=== PATIENT | female | born 1955 | race African-American/Black ===

== ENCOUNTER 2020-07-05 22:17 | Inpatient (IN) | payer OTHER ==
[~2020-07-05] VITALS: Ht 162.6 cm; Wt 102.0 kg
[2020-07-05 22:18] VITALS: BP 125/107
[2020-07-05 23:40] LABS: ABSOLUTE NEUTROPHILS 4.6 thou/uL (1.4-8.2); BASOPHILS 0.5 % (0.0-2.0); EOSINOPHILS 0.2 % (0.0-3.0); HEMATOCRIT 33.1 % (37.0-47.0); HEMOGLOBIN 11.2 gm/dL (12.0-15.0); LYMPHOCYTES 11.9 % (24.0-44.0); MCH 30.3 pg (26.0-34.0); MCHC 33.9 g/dL (28.0-37.0); MCV 89.4 fL (80.0-100.0); MONOCYTES 8.2 % (1.0-8.0); PLATELET COUNT 126 thou/uL (150-400); POLYS 79.2 % (36.0-66.0); RBC 3.71 mil/uL (4.20-5.00); RDW 14.6 % (10.5-14.5); WBC 5.8 thou/uL (4.0-11.0)
[2020-07-05 23:50] LABS: INR 0.93; PROTIME 10.2 Seconds (9.3-11.4)
[2020-07-05 23:51] LABS: ANION GAP 13 mmol/L (7-16); BUN 35 mg/dL (7-18); CALCIUM 8.2 mg/dL (8.5-10.1); CHLORIDE 105 mmol/L (98-107); CO2 25 mmol/L (21-32); CREATININE 1.6 mg/dL (0.6-1.0); GLUCOSE 186 mg/dL (74-106); POTASSIUM 4.5 mmol/L (3.5-5.1); SODIUM 143 mmol/L (136-145)
[2020-07-06 00:01] LABS: LIPASE 164 U/L (73-393); SGOT 49 U/L (15-37); SGPT 25 U/L (30-65); TOTAL BILIRUBIN 0.7 mg/dL (0.2-1.0); TOTAL PROTEIN 7.2 g/dL (6.4-8.2); TROPONIN-I <0.06 ng/mL (<0.06)
[2020-07-06] MEDS ORDERED: LISINOPRIL10 MG PO (02:26)
[2020-07-06] MEDS ORDERED: LIPITOR40 MG PO (02:26)
[2020-07-06] MEDS ORDERED: HUMALOG KW100 UNIT/1 SUBQ (03:24)
[2020-07-06] MEDS ORDERED: LANTUS SOL100 UNIT/1 SUBQ (03:25)
[2020-07-06] MEDS ORDERED: TRULICITY1.5 MG/0.5 SUBQ (03:26)
[2020-07-06 06:37] LABS: CHOLESTEROL 165 mg/dL (<200); HDL CHOLESTEROL 43 mg/dL (>40); LDL CHOLESTEROL 80 mg/dL (<100); TC:HDL 3.8 Ratio (Not establshd); TRIGLYCERIDE 210 mg/dL (<150); VLDL 42 mg/dL (<40)
--- NOTE | 2020-07-06 07:55 | NUR ---
CONTACTED DIETARY. PT MEAL TRAY WILL BE DELIVERED SHORTLY.
[2020-07-06 08:27] LABS: ANION GAP 12 mmol/L (7-16); BUN 31 mg/dL (7-18); CHLORIDE 107 mmol/L (98-107); CO2 25 mmol/L (21-32); CREATININE 1.5 mg/dL (0.6-1.0); GLUCOSE 263 mg/dL (74-106); POTASSIUM 4.5 mmol/L (3.5-5.1); SODIUM 144 mmol/L (136-145)
[2020-07-06 08:38] LABS: ALBUMIN 2.8 g/dL (3.4-5.0); SGOT 48 U/L (15-37); SGPT 24 U/L (14-59); TOTAL BILIRUBIN 0.5 mg/dL (0.2-1.0); TOTAL PROTEIN 6.9 g/dL (6.4-8.2); TROPONIN-I <0.06 ng/mL (<0.06)
--- NOTE | 2020-07-06 11:05 | EKG ---
[place] [address] [facility] [place] [address] ELECTROCARDIOGRAM REPORT Name: JOSIANE PALOMO Room #: 170-10 ADM IN M.R.#: [id number] Admission: 07/06/20 Attend Phys: Prasanth Max MD Discharge: Date of : 55 Report #: [id number] [facility] ED Test Date: 2020-07-05 Test Time: 22:57:03 Pat Name: JOSIANE PALOMO Department: Room: 170 Gender: F Embedded Systems Engineer: MANDA : 1955 Requested By: Corbin Wilde Order Number: [id number] MD: Marco A Malik Measurements Intervals [place] Rate: 97 P: 70 VA: 119 QRS: 31 QRSD: 95 T: 43 QT: 364 QTc: 463 Interpretive Statements Sinus rhythm Borderline short VA interval Probable left atrial enlargement RSR' in V1 or V2, probably normal variant Baseline wander in lead(s) V3 No previous ECG available for comparison Electronically Signed On 07-06-2020 11:05:51 CDT by Marco A Malik [email or web address] <ELECTRONICALLY SIGNED> By: Marco A Malik MD 07/06/20 1105 56 56 Marco A Malik MD /ADRIEN
--- NOTE | 2020-07-06 15:07 | HC ---
[facility] [place] [address] CONSULTATION Name: JOSIANE PALOMO Room #: 170-10 ADM IN M.Jennifer.#: [id number] Admission: 07/06/20 Attend Phys: Prasanth Max MD Discharge: Date of : 55 Report #: [id number] THIS REPORT FOR: cc: [facility] - Clinic physician unknown [facility] - Clinic physician unknown Vasyl Elmore MD ~ DATE OF SERVICE: 07/06/2020 INFECTIOUS DISEASE CONSULTATION ATTENDING PHYSICIAN: Dr. Max. REASON FOR EVALUATION: Pneumonitis as well as diarrhea. HISTORY OF PRESENT ILLNESS: Chart reviewed, patient examined. This is a 64-year-old woman with known diabetes mellitus, who began feeling ill around 06/21/2020, was evaluated at that point with dyspnea, nausea, emesis, lower abdominal pain and apparently diagnosed with urinary tract infection. She was treated with fosfomycin, subsequent to that, had developed almost refractory diarrhea, perhaps related to the adverse drug effect. She has had progressive shortness of breath. Evaluation previously had been fairly unremarkable. It was felt to be hypoxic, was placed on supplemental oxygen 3.5 liters. Chest x-ray showed right lung infiltrate. Blood cultures collected on admission are negative thus far and elevated creatinine of 1.6. Lactic acid is 1.2. Procalcitonin is 0.13. CT abdomen and pelvis showed no abnormalities with the kidneys, thick walled appearance of the splenic flexure, there is question of otherwise lack of inflammatory changes. COVID testing is pending. She has ongoing abdominal pain, although it is not clear if she has had significant fevers. Does admit to chills. She has had anorexia and poor p.o. intake. She is not encephalopathic. ALLERGIES: None known. CURRENT MEDICATIONS: Include atorvastatin, aspirin, famotidine, zinc, ascorbic acid, enoxaparin, guaifenesin, insulin lispro, metronidazole, ipratropium and albuterol inhaler, dexamethasone, azithromycin and ceftriaxone. PAST MEDICAL HISTORY: Noted diabetes mellitus, hyperlipidemia, and renal insufficiency. SOCIAL HISTORY: Nonsmoker, no ethanol, no illicit drug use. FAMILY HISTORY: Noncontributory. REVIEW OF SYSTEMS: Otherwise, as noted above in 10-point review. [address] [address] CONSULTATION Name: JOSIANE PALOMO Room #: 170-10 ADM IN Zohaib.#: [id number] Admission: 07/06/20 Attend Phys: Prasanth Max MD Discharge: Date of : 55 Report #: [id number] PHYSICAL EXAMINATION: GENERAL: She appears ill. She is lying in right lateral position. She is generally lucid, moderate distress, appears somewhat chronically ill and undernourished. VITAL SIGNS: Temperature 98.9, pulse 86, respirations 17, blood pressure 145/62. SKIN: Warm, dry, no rashes. HEENT: Normocephalic. Extraocular muscles are intact. Nasal cannula is in place. NECK: Supple. LUNGS: Few scattered coarse breath sounds. HEART: Regular. I do not appreciate a murmur. ABDOMEN: Somewhat tender to palpation. There are no overt peritoneal signs. GENITOURINARY AND RECTAL: Deferred. LABORATORY DATA: Electrolytes: Sodium is 144, potassium 4.5, chloride 107, bicarbonate 25, anion gap of 12, BUN and creatinine 31 and 1.5, and glucose of 263. AST 48, ALT of 24, albumin of 2.8, total protein 6.9, estimated GFR 42. CT abdomen and pelvis described above. Blood cultures are sterile thus far. Procalcitonin is 0.13. Lactic acid is 1.2. CBC: White count of 5.8, H and H 11.2 and 33.1, and platelets of 126. ASSESSMENT: 1. Pneumonitis, complicated by respiratory failure. 2. Refractory diarrhea in the setting of antibiotics. 3. Diabetes mellitus. PLAN: We will continue empiric antimicrobial therapy. At this point, awaiting results of the COVID testing seems likely this may well be positive. In the event of this, we will add additional therapy to cover that. She remains quite tenuous at this point. We will check a stool for C. diff as well, perhaps may explain in part her gastrointestinal related issues. She does remain quite tenuous. Continue to monitor expectantly, supportive care. Thank you. <ELECTRONICALLY SIGNED> By: Vasyl Elmore MD 07/06/20 1507 [id number] Vasyl Elmore MD /nt
[2020-07-06 18:06] LABS: BE(vivo) -2.3 mmol/L (-2 to +3); HCO3 21.9 mmol/L (22.0-26.0); PCO2 35.5 mmHg (35.0-45.0); PO2 72.6 mmHg (80.0-100.0); pH 7.408 (7.360-7.450); sO2 94.9 % (92.0-98.0)
[2020-07-06 18:25] VITALS: BP 123/68
[2020-07-06 19:15] VITALS: BP 132/65
[2020-07-06 20:30] VITALS: BP 141/80
[2020-07-07] VITALS (44 sets, daily range): BP systolic 72–163; BP diastolic 45–97
[2020-07-07 01:05] LABS: GLYCOHEMOGLOBIN (HGB A1C) 7.4 % (4.8-5.6)
[2020-07-07 04:27] LABS: URINE BILIRUBIN NEGATIVE (Negative); URINE BLOOD TRACE (Negative); URINE CLARITY CLEAR; URINE COLOR YELLOW; URINE GLUCOSE-RANDOM* 2+ (Negative); URINE KETONES NEGATIVE (Negative); URINE LEUKOCYTES NEGATIVE (Negative); URINE NITRITE NEGATIVE (Negative); URINE PROTEIN (DIPSTICK) 2+ (Negative); URINE SPECIFIC GRAVITY >= 1.030 (1.005-1.035); URINE UROBILINOGEN 0.2 E.U./dl (0.2-1.0)
[2020-07-07 04:39] LABS: AMORPHOUS URATES Few /LPF (None Seen); BACTERIA None Seen /HPF (None Seen); HYALINE CASTS 0-3 Few /LPF (None Seen); MUCUS 0-3 Light strn/LPF (None Seen); SQUAMOUS None Seen /LPF (0-3); TRANSITIONAL EPITHEL CELL 0-3 Few /LPF (None Seen); URINE RBC 0-2 Rare /HPF (0-2); URINE WBC None Seen /HPF (0-5)
[2020-07-07 04:40] LABS: CRYSTALS None Seen /LPF (None Seen)
[2020-07-07 07:09] LABS: ALBUMIN 2.5 g/dL (3.4-5.0); CALCIUM 7.9 mg/dL (8.5-10.1); CREATININE 1.4 mg/dL (0.6-1.0); DIRECT BILIRUBIN 0.1 mg/dL (<0.1-0.2); PHOSPHORUS 2.7 mg/dL (2.6-4.7); POTASSIUM 4.5 mmol/L (3.5-5.1); TOTAL BILIRUBIN 0.4 mg/dL (0.2-1.0); TOTAL PROTEIN 6.4 g/dL (6.4-8.2)
--- NOTE | 2020-07-07 07:52 | NUR ---
PT ADMITTED FROM ER TO 356 FOR COVID +. DEHYDRATION, PNEUMONIA, ON BIPAP. 08/11 RT 12 FIO2 80%. BS DIMINISHED AND SLIGHTLY COARSE AT BASES. LABORED ON CURRENT BIPAP SETTINGS. FIO2 INCREASED TO 85 %. SATS DOWN TO 88-89%. NOTIFIED DAY SHIFT RT. PT POSSIBLY TO TRANSFER TO ICU. DAY SHIFT WAITING FOR DR ALCALA TO SEE PT. PCXRAY DONE THIS AM. ENCOURAGED PT TO NOT BE TALKING ON THE PHONE AND TO RELAX. NOTIFIED MEAT SCRUBBER LAST NIGHT OF DESATURATION AND SOA, AND ANXIETY. MORPHINE GIVEN X1 FOR AIR HUNGER . PT STILL C/O SOA. NO C/O CHEST PAIN TONIGHT. NOTIFIED DAY SHIFT RT AND NS, AND CHARGE NS OF SATS AND CURRENT RESP STATUS.
[2020-07-07 08:25] LABS: HCO3 20.4 mmol/L (22.0-26.0); PCO2 35.7 mmHg (35.0-45.0); PO2 77.2 mmHg (80.0-100.0); pH 7.375 (7.360-7.450); sO2 95.2 % (92.0-98.0)
--- NOTE | 2020-07-07 11:00 | NUR ---
chart review. pt transferred down from 3w rt sob, on bipap 100% covid +. unable to visit with her rt isolation and conserve on ppe. will cont following as needed for dc needs.
--- NOTE | 2020-07-07 11:38 | NUR ---
ASSUMED PATIENT CARE AR 0700. A/O X4.ANXIOUS. INCREASED FOI2 TO 100% AT 0800. ERPORTED ABG TO DR THORPE AND DR JOSUE. PATIENT TRANSFERED TO [facility] AT 1135.
--- NOTE | 2020-07-07 12:09 | NUR ---
ASSUMED CARE OF PT AT 1130 FROM 3W RECEIVED A CALL FROM 3W FRAUD ANALYST STATING DR. THORPE TOLD HER THAT WHEN THE PATIENT ARRIVED WE WOULD BE INTUBATING HER. PT ARRIVED ON THE UNIT AND I PAGED DR. THORPE, HE STATED HE WANTED THE CENTRAL LINE PLACED FIRST AND THEN WE WILL INTUBATE. GEORGES (PT SISTER) CALLED AT 1210 FOR AN UPDATE AND WANTED TO KNOW WHY THE PT HAD BEEN MOVED TO ICU. SHE STATED THAT HER SON IS THE DPOA BUT HE LIVES IN [place], SO GEORGES IS THE LOCAL HVAC SERVICE TECHNICIAN. SHE ASKED ME TO CALL THE PT'S SON AND EXPLAIN WHAT IS GOING ON.
--- NOTE | 2020-07-07 14:47 | NUR ---
VAT PLACED A 5FRTL RT IJ FOR COVID+ PT FOR INTUBATION
[2020-07-07 16:04] LABS: BE(vivo) -6.2 mmol/L (-2 to +3); HCO3 18.4 mmol/L (22.0-26.0); PCO2 33.2 mmHg (35.0-45.0); PO2 159.4 mmHg (80.0-100.0); pH 7.361 (7.360-7.450)
--- NOTE | 2020-07-07 17:12 | NUR ---
ASSUMED CARE OF PT AT 1130. PT CAME DOWN ON BIPAP FROM 3W PATIENT WAS INTUBATED AT 1337 PT'S SATS DROPPED JUST AFTER 1400 TO THE 50'S, WE RECEIVED A CALL FROM RADIOLOGY THAT THE ET TUBE WAS IN THE RIGHT BRONCHUS AND NEEDED TO BE BACKED OUT 3 CM. RT WAS AT THE BEDSIDE AND DID THAT AND HER SATS WENT BACK TO THE 90'S. I HAVE SPOKEN TO PT'S SISTER GEORGES 3 TIMES TODAY, HER SISTER JOSE CAME UP TO THE ICU AND ASKED QUESTIONS ABOUT HER CONDITION. I TOLD HER THAT THEY HAD TO HAVE ONE SPOKES PERSON AND I COULD NOT BE ANSWERING THE SAME QUESTIONS ALL DAY LONG. SHE SAID SHE UNDERSTOOD. I JUST RECEIVED A CALL A 1715 FROM ANOTHER SISTER AND A MAN THAT STATED HE WAS HER AND THEY WERE BOTH WANTING INFORMATION. I INFORMED THEM THAT ONLY ONE PERSON COULD CALL A DAY FOR UPDATES, THEY SAID THEY UNDERSTOOD. THEY WOULD LIKE TO FACETIME THE PT LATER AND I TOLD THEM TO COORDINATE THAT WITH THE NIGHT NURSE
[2020-07-08] VITALS (100 sets, daily range): BP systolic 80–148; BP diastolic 43–76
[2020-07-08 04:51] LABS: ABSOLUTE NEUTROPHILS 4.2 thou/uL (1.4-8.2); BASOPHILS 0.2 % (0.0-2.0); HEMATOCRIT 26.7 % (37.0-47.0); LYMPHOCYTES 12.1 % (24.0-44.0); MCH 29.6 pg (26.0-34.0); MCHC 33.6 g/dL (28.0-37.0); MCV 88.1 fL (80.0-100.0); MONOCYTES 8.5 % (1.0-8.0); PLATELET COUNT 157 thou/uL (150-400); POLYS 79.2 % (36.0-66.0); RBC 3.03 mil/uL (4.20-5.00); RDW 14.8 % (10.5-14.5); WBC 5.3 thou/uL (4.0-11.0)
[2020-07-08 05:16] LABS: BE(vivo) -3.7 mmol/L (-2 to +3); HCO3 19.2 mmol/L (22.0-26.0); PCO2 27.7 mmHg (35.0-45.0); PO2 131.9 mmHg (80.0-100.0); pH 7.459 (7.360-7.450); sO2 98.8 % (92.0-98.0)
[2020-07-08 05:24] LABS: ALBUMIN 2.1 g/dL (3.4-5.0); ANION GAP 13 mmol/L (7-16); BUN 36 mg/dL (7-18); CALCIUM 7.3 mg/dL (8.5-10.1); CHLORIDE 110 mmol/L (98-107); CO2 19 mmol/L (21-32); CREATININE 1.3 mg/dL (0.6-1.0); DIRECT BILIRUBIN < 0.1 mg/dL (<0.1-0.2); GLUCOSE 372 mg/dL (74-106); PHOSPHORUS 3.1 mg/dL (2.5-4.9); POTASSIUM 4.4 mmol/L (3.5-5.1); SGOT 36 U/L (15-37); SGPT < 6 U/L (30-65); SODIUM 142 mmol/L (136-145); TOTAL BILIRUBIN 0.4 mg/dL (0.2-1.0); TOTAL PROTEIN 5.2 g/dL (6.4-8.2)
--- NOTE | 2020-07-08 11:34 | NUR ---
chart review, on vent, unable visit with ezra + erendira. cm left message for her sister marcus, requested a call back.
--- NOTE | 2020-07-08 19:58 | NUR ---
Layla, family called to inquire regarding pt status. updated including pt on vent, sedated to allow her lungs to rest while fighting off the covid. when sedation vacation performed pt "bucking vent so hard she intermittently is sitting up in bed", then requires continued sedation. pt requiring increasing amounts of fio2 on vent. continous bed rotation for her lungs. informed her since pt is a diabetic, she is at greater risk for covid and potential complications however we are doing every thing possible to promote an optimal outcome. Layla expressed her gratitude. all questions answered to satisfaction.
[2020-07-09] VITALS (84 sets, daily range): BP systolic 78–154; BP diastolic 36–79
[2020-07-09 05:35] LABS: HEMOGLOBIN 9.4 gm/dL (12.0-15.0); MCH 30.1 pg (26.0-34.0); MCHC 33.7 g/dL (28.0-37.0); MCV 89.1 fL (80.0-100.0); RBC 3.14 mil/uL (4.20-5.00); WBC 6.7 thou/uL (4.0-11.0)
[2020-07-09 05:56] LABS: ALBUMIN 2.3 g/dL (3.4-5.0); ANION GAP 12 mmol/L (7-16); BUN 32 mg/dL (7-18); CALCIUM 7.3 mg/dL (8.5-10.1); CHLORIDE 111 mmol/L (98-107); CO2 20 mmol/L (21-32); CREATININE 1.2 mg/dL (0.6-1.0); DIRECT BILIRUBIN < 0.1 mg/dL (<0.1-0.2); GLUCOSE 346 mg/dL (74-106); SGOT 37 U/L (15-37); SGPT 14 U/L (30-65); SODIUM 143 mmol/L (136-145); TOTAL BILIRUBIN 0.4 mg/dL (0.2-1.0); TOTAL PROTEIN 5.6 g/dL (6.4-8.2)
--- NOTE | 2020-07-09 12:28 | NUR ---
ASSUMED CARE OF PT AT 0700 DR. RODRIGUEZ AT BEDSIDE AT 1036, HE IS GOING TO ORDER AND INSULIN DRIP DUE TO CONSISTENTLY HIGH SUGARS DR. THORPE AT OUTSIDE OF ROOM AT 1115, NO NEW ORDERS GIVEN
--- NOTE | 2020-07-09 14:51 | NUR ---
1ST CXR TOO DEEP, RIJ WITHDREW FEW CM'S. 2ND CXR CONFIRMED CL PLACEMENT. RELEASED FOR IMMEDIATE USE PER PROTOCOL.
[2020-07-10] VITALS (71 sets, daily range): BP systolic 85–125; BP diastolic 44–68
[2020-07-10 05:12] LABS: HEMATOCRIT 25.6 % (37.0-47.0); HEMOGLOBIN 8.7 gm/dL (12.0-15.0); MCH 30.3 pg (26.0-34.0); MCHC 33.9 g/dL (28.0-37.0); MCV 89.6 fL (80.0-100.0); RBC 2.86 mil/uL (4.20-5.00); WBC 8.4 thou/uL (4.0-11.0)
[2020-07-10 05:55] LABS: ALBUMIN 2.1 g/dL (3.4-5.0); ANION GAP 12 mmol/L (7-16); BUN 31 mg/dL (7-18); CALCIUM 7.2 mg/dL (8.5-10.1); CHLORIDE 116 mmol/L (98-107); CO2 20 mmol/L (21-32); CREATININE 1.3 mg/dL (0.6-1.0); DIRECT BILIRUBIN < 0.1 mg/dL (<0.1-0.2); GLUCOSE 302 mg/dL (74-106); PHOSPHORUS 1.4 mg/dL (2.5-4.9); POTASSIUM 3.5 mmol/L (3.5-5.1); SGOT 44 U/L (15-37); SGPT 21 U/L (30-65); SODIUM 148 mmol/L (136-145); TOTAL BILIRUBIN 0.3 mg/dL (0.2-1.0); TOTAL PROTEIN 4.9 g/dL (6.4-8.2)
--- NOTE | 2020-07-10 07:13 | NUR ---
ASSUMED CARE AT 1900. 1999-SPOKE TO PT'S SISTER , GAVE UPDATE ON CONDITION, SHE ASKED SAME QUESTIONS MULTIPLE TIMES. SUCTIONED PT, AND SHE WOKE UP THROUGH HER SEDATION, ABLE TO SHAKE HEAD YES/NO AND SQUEEZE HAND TO COMMAND. RT CHANGED VENT SETTING TO PRESSURE CONTROL APPROX 2230. AFTER A SLIGHT INCR TO VERSED GTT AND THE VENT CHANGE, PT SATTING BETTER OVERNIGHT. Q1 HOUR ACCUCHECKS, TITRATING INSULIN GTT THROUGHOUT NIGHT, BLOOD SUGARS CONSISTENTLY IN 300'S. PT HAD TWO BOWEL MOVEMENTS OVERNIGHT, THE 2ND ONE THIS AM VERY RUNNY; PT MAY QUALIFY FOR A FMS TODAY. NO OTHER CONCERNS, SHIFT REPORT GIVEN 0700.
--- NOTE | 2020-07-10 12:02 | NUR ---
ASSUMED CARE OF PT AT 0700 KARU AT BEDSIDE AT 1030, ORDERING ASH THORPE OUTSIDE DOOR, NO NEW ORDERS GIVEN PT'S SISTER CALLED AT 1203 AND UPDATED PER POC
[2020-07-11] VITALS (71 sets, daily range): BP systolic 78–148; BP diastolic 45–80
[2020-07-11 04:12] LABS: BE(vivo) -4.4 mmol/L (-2 to +3); HCO3 21.2 mmol/L (22.0-26.0); PCO2 41.5 mmHg (35.0-45.0); sO2 90.6 % (92.0-98.0)
[2020-07-11 04:13] LABS: pH 7.327 (7.360-7.450)
[2020-07-11 06:54] LABS: HEMATOCRIT 25.5 % (37.0-47.0); HEMOGLOBIN 8.6 gm/dL (12.0-15.0); MCH 30.5 pg (26.0-34.0); MCHC 33.8 g/dL (28.0-37.0); MCV 90.2 fL (80.0-100.0); RBC 2.83 mil/uL (4.20-5.00); RDW 15.7 % (10.5-14.5); WBC 10.5 thou/uL (4.0-11.0)
[2020-07-11 07:01] LABS: CALCIUM 7.5 mg/dL (8.5-10.1); CREATININE 1.4 mg/dL (0.6-1.0); POTASSIUM 3.7 mmol/L (3.5-5.1)
--- NOTE | 2020-07-11 07:37 | NUR ---
ASSUMED CARE AT 1900. PT HAD A LARGE LIQUID STOOL, OBTAINED ORDER AND PLACED FMS. THIS AM, PT NOTED TO HAVE O2 SATS 89-90% WHILE LYING TOWARD LEFT SIDE. AFTER PULLING UP IN BED AND TURNING TO RIGHT, SATS IMPROVED TO 98%. CONTINUES TO HAVE LOUD CRACKLES ON LEFT SIDE. SPOKE TO PT'S SISTER JOSE THIS AM AT 0545, GAVE UPDATE ABOUT INSULIN GTT AND O2 NEEDS; SHE ASKED IF THE FAMILY COULD FACETIME SOMETIME, POSSIBLY THIS EVENING OR TUESDAY AFTERNOON. MADE SURE TO PASS THAT REQUEST ON TO DAY RN. NO OTHER CONCERNS, SHIFT REPORT GIVEN 0700.
--- NOTE | 2020-07-11 12:20 | NUR ---
chart review. + covid. remains on vent, nutritional support. discussed during am rounds: prone?, restarted insulin gtt, levo gtt. bedside nurse have been in communication with family. no anticipated dc over weekend. will cont following as needed for dc needs.
[2020-07-12] VITALS (58 sets, daily range): BP systolic 84–160; BP diastolic 53–93
[2020-07-12 04:35] LABS: HEMATOCRIT 27.4 % (37.0-47.0); HEMOGLOBIN 9.1 gm/dL (12.0-15.0); MCH 29.7 pg (26.0-34.0); MCHC 33.1 g/dL (28.0-37.0); MCV 89.8 fL (80.0-100.0); RBC 3.05 mil/uL (4.20-5.00); RDW 15.6 % (10.5-14.5); WBC 11.2 thou/uL (4.0-11.0)
[2020-07-12 04:39] LABS: CALCIUM 7.7 mg/dL (8.5-10.1); CREATININE 1.1 mg/dL (0.6-1.0); POTASSIUM 4.3 mmol/L (3.5-5.1)
[2020-07-12 05:22] LABS: BE(vivo) -3.2 mmol/L (-2 to +3); HCO3 22.6 mmol/L (22.0-26.0); PCO2 43.7 mmHg (35.0-45.0); pH 7.332 (7.360-7.450); sO2 85.7 % (92.0-98.0)
[2020-07-12 05:23] LABS: PO2 53.8 mmHg (80.0-100.0)
--- NOTE | 2020-07-12 07:04 | NUR ---
ASSUMED CARE AT 1900. SPOKE W/PT'S SISTER GEORGES ABOUT 2200, GAVE UPDATE ABOUT PRONING. STOPPED LEVO GTT AT 2120, BP STABLE OVERNIGHT, SLIGHTLY SOFT THIS AM. PT SUPINATED ABOUT 0300. TOLERATED BEING PRONED AND DID WELL ONCE TURNED BACK. RESUMED CONTINUOUS TUBE FEED, LOW RESIDUALS OVERNIGHT. INSULING GTT AT 2 UNITS/HR OVERNIGHT, BS IN 80-90. NO OTHER CONCERNS, SHIFT REPORT GIVEN O700.
--- NOTE | 2020-07-12 12:16 | NUR ---
ASSUMED CARE AT 0700. PATIENT'S SISTER, GEORGES CALLED FROM [phone] AND SHE WAS UPDATED AND EDUCATED ON THAT PATIENT'S CONDITION AND PLAN OF CARE.
[2020-07-12 12:59] LABS: BE(vivo) -0.4 mmol/L (-2 to +3); HCO3 24.4 mmol/L (22.0-26.0); PCO2 40.5 mmHg (35.0-45.0); PO2 78.5 mmHg (80.0-100.0); pH 7.397 (7.360-7.450); sO2 95.6 % (92.0-98.0)
[2020-07-13] VITALS (21 sets, daily range): BP systolic 98–151; BP diastolic 55–83
[2020-07-13 04:36] LABS: HEMATOCRIT 27.6 % (37.0-47.0); MCH 29.4 pg (26.0-34.0); MCHC 32.7 g/dL (28.0-37.0); MCV 89.7 fL (80.0-100.0); RBC 3.07 mil/uL (4.20-5.00); RDW 15.7 % (10.5-14.5); WBC 9.1 thou/uL (4.0-11.0)
[2020-07-13 04:43] LABS: BE(vivo) 1.9 mmol/L (-2 to +3); HCO3 27.2 mmol/L (22.0-26.0); PCO2 46.1 mmHg (35.0-45.0); PO2 59.3 mmHg (80.0-100.0); pH 7.389 (7.360-7.450); sO2 90.3 % (92.0-98.0)
[2020-07-13 05:11] LABS: CALCIUM 8.4 mg/dL (8.5-10.1); CREATININE 0.9 mg/dL (0.6-1.0); POTASSIUM 3.9 mmol/L (3.5-5.1)
--- NOTE | 2020-07-13 06:37 | NUR ---
PT TURNED BACK FROM PRONE POSITION AT 030. TOLERATING WELL. PROPOFOL RESUMED AT 2114. PT'S SISTER, GEORGES CALLED WITH STATUS UPDATE. VENT SETTINGS UNCHANGED. WILL CONTINUE TO MONITOR.
--- NOTE | 2020-07-13 10:32 | NUR ---
ASSUMED CARE AT 0700. SPOKE WITH PATIENT'S , POORNIMA OVER THE PHONE FROM [phone] AND SHE WAS UPDATED AND EDUCATED ON THE PATIENT'S CONDITION AND PLAN OF CARE.
--- NOTE | 2020-07-13 12:17 | NUR ---
ASSUMED CARE AT 0700. PATIENT'S SISTER, GEORGES, CALLED FROM [phone] AND SHE WAS UPDATED AND EDUCATED ON THE PATIENT'S CONDITION AND PLAN OF CARE.
[2020-07-14] VITALS (25 sets, daily range): BP systolic 90–169; BP diastolic 52–86
--- NOTE | 2020-07-14 03:48 | NUR ---
ASSUMED CARE OF PATIENT AT 1900. FIO2 TITRATED DOWN PATIENT TOLERATED. PRONE UNTIL 0100, UNPRONING WENT WELL, NO S/S OF DISTRESS, PATIENT DID PUSH FMS OUT OF RECTUM WHEN COUGHING, LEFT FMS OUT STOOL IS STARTING TO THICKEN UP. SPOKE WITH SISTER AT 2200. TALKED ABOUT INTUBATION, VENTILATION, CRITERIA FOR EXTUBATION OR POSSIBILITY OF TRACH. SISTER WOULD LIKE DR THORPE TO CALL PATIENT'S SON AND EXPLAIN IF THIS MIGHT BECOME A POSSIBILITY.
[2020-07-14 05:43] LABS: CALCIUM 8.7 mg/dL (8.5-10.1); CREATININE 0.8 mg/dL (0.6-1.0); POTASSIUM 3.7 mmol/L (3.5-5.1)
[2020-07-14 05:46] LABS: HEMATOCRIT 26.3 % (37.0-47.0); HEMOGLOBIN 8.7 gm/dL (12.0-15.0); MCH 29.8 pg (26.0-34.0); MCHC 33.2 g/dL (28.0-37.0); MCV 89.9 fL (80.0-100.0); RBC 2.92 mil/uL (4.20-5.00); RDW 15.5 % (10.5-14.5); WBC 6.7 thou/uL (4.0-11.0)
[2020-07-14 11:13] LABS: ALBUMIN 2.9 g/dL (3.4-5.0); DIRECT BILIRUBIN 0.1 mg/dL (<0.1-0.2); TOTAL BILIRUBIN 0.4 mg/dL (0.2-1.0); TOTAL PROTEIN 5.7 g/dL (6.4-8.2)
--- NOTE | 2020-07-14 15:17 | NUR ---
chart review. + covid. remains on vent, nutritional support. discussed during los and am rounds. bedside nurse reported she awake. will cont following as needed for dc needs. bedside staff providing updates family.
--- NOTE | 2020-07-14 19:27 | NUR ---
assumed care 0700.. pt openening eyes and nodding to questions in am when sedation lightened. fmaily update on pt staus 1200. proned at 1330 w/improvmement of 02 sat following repositioning. afebrile. small bm in am. marginal progression in plan of care if any.
[2020-07-15] VITALS (25 sets, daily range): BP systolic 85–129; BP diastolic 46–73
[2020-07-15 05:10] LABS: HEMATOCRIT 23.2 % (37.0-47.0); HEMOGLOBIN 7.8 gm/dL (12.0-15.0); MCH 30.8 pg (26.0-34.0); MCHC 33.9 g/dL (28.0-37.0); MCV 90.9 fL (80.0-100.0); RBC 2.55 mil/uL (4.20-5.00); RDW 15.6 % (10.5-14.5); WBC 4.9 thou/uL (4.0-11.0)
[2020-07-15 05:19] LABS: HCO3 28.2 mmol/L (22.0-26.0); PCO2 40.4 mmHg (35.0-45.0); PO2 65.5 mmHg (80.0-100.0); pH 7.461 (7.360-7.450); sO2 93.9 % (92.0-98.0)
[2020-07-15 05:32] LABS: CALCIUM 8.7 mg/dL (8.5-10.1); CREATININE 0.9 mg/dL (0.6-1.0)
[2020-07-15 05:40] LABS: ALBUMIN 2.8 g/dL (3.4-5.0); DIRECT BILIRUBIN 0.1 mg/dL (<0.1-0.2); TOTAL BILIRUBIN 0.6 mg/dL (0.2-1.0); TOTAL PROTEIN 5.4 g/dL (6.4-8.2)
--- NOTE | 2020-07-15 19:35 | NUR ---
PT CONTINUED TO OPEN EYS AND NOD TO QUESTIONS WHEN SPOKEN TO. ABLE TO WEAN PEEP TO 8 AND FI02 TO 50%. DESAT TO 88% WHEN ATTEMPTING TO WEAN PEEP TO 6. NO PRONE TODAY DUE TO WEANING TOLERANCE PER DR. THORPE. TOLERATING TUBE FEEDINGS. INCREASED WATER BOLUS TO Q4. PROGRESSING IN PLAN OF CARE.
[2020-07-16] VITALS (27 sets, daily range): BP systolic 83–154; BP diastolic 40–77
[2020-07-16 05:51] LABS: DIRECT BILIRUBIN 0.1 mg/dL (<0.1-0.2); TOTAL BILIRUBIN 0.3 mg/dL (0.2-1.0); TOTAL PROTEIN 5.7 g/dL (6.4-8.2)
[2020-07-16 06:17] LABS: CALCIUM 8.8 mg/dL (8.5-10.1); CREATININE 1.1 mg/dL (0.6-1.0); POTASSIUM 3.9 mmol/L (3.5-5.1)
--- NOTE | 2020-07-16 11:30 | NUR ---
ASSUMMED CARE OF THIS PATIENT FROM THE NIGHT NURSE ENRIKE AT 0700 TODAY. PATIENT REMAINS INTUBATED AND SEDATED ON THE VENT. SPOKE WITH PATIENT'S SISTER AT 1125 AND UPDATED HER TO THE PATIENT'S STATUS. WILL CONTINUE TO MONITOR.
--- NOTE | 2020-07-16 19:07 | NUR ---
PATIENT IS NOT PROGESSING TOWARDS OUTCOME GOALS O2 SAT IS IN THE LOWER 90'S, IMPROVED SEDATION WAS INCREASED. TOLERATING TUBE FEEDINGS. WILL CONTINUE TO MONITOR. PLEASE REFER TO ASSESSMENTS.
[2020-07-17] VITALS (23 sets, daily range): BP systolic 90–138; BP diastolic 47–76
[2020-07-17 05:26] LABS: HEMOGLOBIN 8.3 gm/dL (12.0-15.0); MCH 30.3 pg (26.0-34.0); MCHC 33.1 g/dL (28.0-37.0); MCV 91.4 fL (80.0-100.0); RBC 2.73 mil/uL (4.20-5.00); WBC 7.7 thou/uL (4.0-11.0)
[2020-07-17 05:54] LABS: CALCIUM 8.9 mg/dL (8.5-10.1); POTASSIUM 3.8 mmol/L (3.5-5.1)
--- NOTE | 2020-07-17 11:14 | NUR ---
ASSUMED CARE OF PT AT 0700 KARU AT BEDSIDE AT 1031 HE ASKED THAT I WORK ON DECREASING SEDATION SO WE CAN DETERMINE WHAT HER NEURO STATUS IS
[2020-07-18] VITALS (20 sets, daily range): BP systolic 84–171; BP diastolic 43–93
[2020-07-18 05:02] LABS: HEMATOCRIT 24.9 % (37.0-47.0); HEMOGLOBIN 8.2 gm/dL (12.0-15.0); MCH 30.2 pg (26.0-34.0); MCHC 33.1 g/dL (28.0-37.0); MCV 91.1 fL (80.0-100.0); RBC 2.73 mil/uL (4.20-5.00); RDW 15.7 % (10.5-14.5)
[2020-07-18 05:14] LABS: CALCIUM 9.4 mg/dL (8.5-10.1); CREATININE 1.2 mg/dL (0.6-1.0); POTASSIUM 4.1 mmol/L (3.5-5.1)
--- NOTE | 2020-07-18 15:31 | NUR ---
PT INTUBATED AND SEDATED. VENT SETTINGS TITRATED UP BY PULMONLOGY/RT. SEDATION VACATION PERFORMED FROM [phone], PT WAS ABLE TO WAKE UP BUT DID NOT FSC, COUGH/GAG/PAIN WXD INTACT. PT AFEBRILE, POLYUREA, FMS IN PLACE WITH SMALL OUTPUT, TOLERATING TUBE FEEDINGS AT GOAL WITH RESIDUALS WNL. PT AND MULTIPLE FAMILY MEMBERS HAVE BEEN UPDATED AND EDUCATED ON PT CONDITION AND POC. PT NOT PROGRESSING TOWARDS POC.
--- NOTE | 2020-07-18 16:18 | NUR ---
discussed during am rounds and los. she cont to required vent, nutritional support. family updated via bedside nurse. no anticipated dc over the weekend. will cont following as needed for dc needs.
[2020-07-19] VITALS (30 sets, daily range): BP systolic 89–186; BP diastolic 47–98
[2020-07-19 05:16] LABS: HEMATOCRIT 25.4 % (37.0-47.0); HEMOGLOBIN 8.4 gm/dL (12.0-15.0); MCH 30.7 pg (26.0-34.0); MCHC 33.1 g/dL (28.0-37.0); RBC 2.73 mil/uL (4.20-5.00); WBC 10.5 thou/uL (4.0-11.0)
[2020-07-19 05:23] LABS: CALCIUM 9.2 mg/dL (8.5-10.1); CREATININE 1.1 mg/dL (0.6-1.0)
--- NOTE | 2020-07-19 06:19 | NUR ---
ASSUMED CARE OF PATIENT AT 1900. BP LABILE, ORDER FOR VASO FROM DR MONTALVO RECIEVED. DID NOT START BP IMPROVED. O2 SATS DROPPED, FIO2 INCREASED TO 100%. SON CALLED AND WAS ABLE TO FACETIME. WOULD LIKE TO DO IT AGAIN. NOT PROGRESSING TOWARDS POC GOALS EVIDENCED BY INCREASED FIO2 NEEDS AND INABILITY TO TITRATE SEDATION.
--- NOTE | 2020-07-19 09:11 | NUR ---
AT APPX 0830, PT DEVELOPED COPIOUS PINK FROTHY SPUTUM, SUCTIONED FROM ETT. SPO2 74% DESPITE FIO2 100%. UPON AUSCULTATION, BILATERAL BREATH SOUNDS NOTED. DR. MONTALVO AT BEDSIDE. ORDERED STAT CXR TO EVALUATE FOR POSSIBLE PNEUMO- THORAX. DR. MONTALVO ALSO ORDERED AN ADDITIONAL LASIX 60MG IV TO BE GIVEN AFTER HE EVALUATED THE CXR WHILE ON THE UNIT. MONITORING THE PT CLOSELY. SPOKE W/ PT'S SISTER, UPDATE GIVEN W/ EMPHASIS ON CRITICAL CONDITION AND CURRENT EVENTS OF THE MORNING. REASSURANCES AND EMOTIONAL SUPPORT PROVIDED.
--- NOTE | 2020-07-19 10:06 | NUR ---
AT APPX 0945, DR MONTALVO CONTACTED REGARDING PT'S CONTINUED DETERIORATION IN CONDITION DESPITE INTERVENTIONS. RT HERE TO EVALUATE, SUCTION ETT W/ LAVAGE AND ADJUST VENTILATOR SETTINGS. DR. MONTALVO REACHED OUT TO PT'S SON TO DISCUSS PT'S CONDITION. WILL CONTINUE TO MONITOR THIS PT CLOSELY.
--- NOTE | 2020-07-19 10:58 | NUR ---
RT CALLED TO BEDSIDE DUE TO VENTILATOR ALARM AND SPO2 PERSISTENTLY REMAININING AROUND 74% DESPITE INTERVENTIONS. RT PLACED PT BACK ON VC/AC SETTINGS W/ PT SPO2 INCREASING TO 88%. WILL CONTINUE TO MONITOR THIS PT CLOSELY.
--- NOTE | 2020-07-19 18:38 | NUR ---
PT REQUIRING HIGHER FIO2 AND VENTILATOR SETTING ADJUSTMENTS TODAY. ADDITIONAL DOSE OF LASIX WAS GIVEN WITH GOOD RESULTS. PT REQUIRED HIGHER SEDATION FOR VENTILATOR TOLERANCE DUE TO INCREASED WORK OF BREATHING AND ASYNCHRONY W/ VENTILATOR. PT REQUIRING ADDITION OF LEVOPHED FOR B/P SUPPORT. URINE OUTPUT GOOD. PT TOLERATING TUBE FEEDINGS ADEQUATELY. OVERALL, PT NOT PROGRESSING TOWARD GOALS.
[2020-07-20] VITALS (26 sets, daily range): BP systolic 102–146; BP diastolic 54–72
[2020-07-20 05:40] LABS: ABSOLUTE NEUTROPHILS 6.2 thou/uL (1.4-8.2); BASOPHILS 0.7 % (0.0-2.0); EOSINOPHILS 0.6 % (0.0-3.0); HEMATOCRIT 21.5 % (37.0-47.0); HEMOGLOBIN 7.1 gm/dL (12.0-15.0); LYMPHOCYTES 12.8 % (24.0-44.0); MCH 30.8 pg (26.0-34.0); MCHC 33.2 g/dL (28.0-37.0); MCV 92.9 fL (80.0-100.0); MONOCYTES 5.3 % (1.0-8.0); PLATELET COUNT 130 thou/uL (150-400); POLYS 80.6 % (36.0-66.0); RBC 2.32 mil/uL (4.20-5.00); RDW 16.1 % (10.5-14.5); WBC 7.8 thou/uL (4.0-11.0)
[2020-07-20 05:54] LABS: ALBUMIN 3.4 g/dL (3.4-5.0); CALCIUM 8.7 mg/dL (8.5-10.1); CREATININE 1.3 mg/dL (0.6-1.0); MAGNESIUM 2.5 mg/dL (1.8-2.4); PHOSPHORUS 4.3 mg/dL (2.6-4.7); POTASSIUM 4.1 mmol/L (3.5-5.1); TOTAL BILIRUBIN 0.5 mg/dL (0.2-1.0); TOTAL PROTEIN 6.5 g/dL (6.4-8.2)
--- NOTE | 2020-07-20 08:05 | NUR ---
PT NOT PROGRESSING TOWARDS GOALS, UNABLE TO DECRESES SEDATION R/T ASYNCHRONOS BREATHING WITH MECHANICAL VENT., HIGH OXYGEN DEMANDS, UNABLE TO DECRESE VENT SETTING, RT ATTMEPTED TO LOWER fIO2 TO 90% AND THE PRESERVATIVE FILLER MACHINE OPERATOR DESATS MID TO LOW 80'S WITHIN 5MIN, HAD TO INCRESE BACK TO 100%. PT IS UNABLE TO TOLERATED TURING. THIS RN SPOKE WITH THE PATIENT'S SISTER VIA PHONE 07/19/20 AT 2030 AND GAVE AN UPDATE.
--- NOTE | 2020-07-20 08:18 | NUR ---
SPOKE TO SISTER GEORGES AT 0818 AND UPDATED HER PER POC. INFORMED HER THAT IF ANYTHING HAPPENS FOR THE WORSE THAT I WILL CALL HER.
--- NOTE | 2020-07-20 12:42 | NUR ---
ASSUMED CARE OF PT AT 0700, SPOKE TO PT'S SISTER AT 1130 TO GET CONSENT FOR BLOOD. SHE CALLED AGAIN AT 1235 AND WANTED TO KNOW HOW THE BLOOD TRANSFUSION WAS GOING. I SPOKE TO HER SON AT 1240 AND UPDATED HIM PER POC. HE WOULD LIKE TO FACETIME AT 1930
[2020-07-20 16:12] LABS: HEMOGLOBIN 8.1 gm/dL (12.0-15.0)
--- NOTE | 2020-07-20 22:47 | NUR ---
AT 2215 THIS RN CALLED DOMINGO'S SISTER GEORGES AND GAVE AND UPDATE, SHE WILL SAHE WITH THE FAMILY.
[2020-07-21] VITALS (39 sets, daily range): BP systolic 96–145; BP diastolic 49–77
--- NOTE | 2020-07-21 03:06 | NUR ---
CALLED RT TO BEDSIDE, R/T O2 SAT 85%, AMANDA WITH RT SUCTIONED, PINK FROTHY SPUTUM. THIS RN IS TITRATING SEDATION UP TO PREVENT PT FORM OVER BREATHING THE VENT. WILL CONT TO MONIOR. AMANDA DISS CALL DR SELVIN DARLING VENT CHANGE AROUND 0000.
[2020-07-21 05:20] LABS: BE(vivo) -1.9 mmol/L (-2 to +3); HCO3 25.5 mmol/L (22.0-26.0); PCO2 58.3 mmHg (35.0-45.0)
[2020-07-21 05:21] LABS: PO2 51.2 mmHg (80.0-100.0); pH 7.258 (7.360-7.450)
[2020-07-21 06:02] LABS: ABSOLUTE NEUTROPHILS 8.7 thou/uL (1.4-8.2); BASOPHILS 0.7 % (0.0-2.0); EOSINOPHILS 0.7 % (0.0-3.0); HEMATOCRIT 24.1 % (37.0-47.0); HEMOGLOBIN 8.2 gm/dL (12.0-15.0); LYMPHOCYTES 8.9 % (24.0-44.0); MCH 31.3 pg (26.0-34.0); MCHC 34.1 g/dL (28.0-37.0); MCV 91.6 fL (80.0-100.0); MONOCYTES 3.9 % (1.0-8.0); PLATELET COUNT 125 thou/uL (150-400); POLYS 85.8 % (36.0-66.0); RBC 2.63 mil/uL (4.20-5.00); RDW 15.2 % (10.5-14.5); WBC 10.1 thou/uL (4.0-11.0)
[2020-07-21 06:14] LABS: CALCIUM 9.2 mg/dL (8.5-10.1); CREATININE 1.4 mg/dL (0.6-1.0); MAGNESIUM 2.7 mg/dL (1.8-2.4); PHOSPHORUS 4.7 mg/dL (2.5-4.9); POTASSIUM 4.4 mmol/L (3.5-5.1)
--- NOTE | 2020-07-21 06:33 | NUR ---
PATEINT IS NOT PROGRESSING TOWARDS GOALS: INCREASED PC TO 40, fIO2 100% PEEP 16, IS OVER BREATHING THE VENT AND ACIDOTIC. SEADTION IS MAXED ON FENANYL, VERSED AND PROPOFOL. DR MONTALVO IS AWARE. aDDTIONAL DOSE OF LASIX WAS ORDERD AND ADMINISTERD.
--- NOTE | 2020-07-21 12:33 | NUR ---
ASSUMED CARE AT 0700. SPOKE TO PATIENT'S SISTER, GEORGES, FROM [phone] AND SHE WAS UPDATED AND EDUCATED ON THE PATIENT'S CONDITION AND PLAN OF CARE.
--- NOTE | 2020-07-21 16:32 | NUR ---
chart review. discussed during am rounds. remain on vent, nutritional support. try cpap trail. bedside nurse cont provide updates to pt family. will cont following as needed for dc needs.
[2020-07-22] VITALS (44 sets, daily range): BP systolic 75–118; BP diastolic 34–63
[2020-07-22 05:54] LABS: HEMOGLOBIN 7.8 gm/dL (12.0-15.0); MCHC 32.7 g/dL (28.0-37.0); MCV 94.6 fL (80.0-100.0); RBC 2.53 mil/uL (4.20-5.00); RDW 15.9 % (10.5-14.5); WBC 8.2 thou/uL (4.0-11.0)
[2020-07-22 06:02] LABS: ALBUMIN 3.2 g/dL (3.4-5.0); CALCIUM 9.2 mg/dL (8.5-10.1); PHOSPHORUS 7.7 mg/dL (2.6-4.7)
[2020-07-22 06:03] LABS: POTASSIUM 5.4 mmol/L (3.5-5.1)
--- NOTE | 2020-07-22 13:17 | NUR ---
ASSUMED CARE AT 0700. PATIENT'S SISTER, GEORGES, CALLED FROM [phone] AND SHE WAS UPDATED AND EDUCATED ON THE PATIENT'S CONDITION AND PLAN OF CARE.
[2020-07-23] VITALS (60 sets, daily range): BP systolic 91–120; BP diastolic 41–77
[2020-07-23 08:47] LABS: ALBUMIN 3.2 g/dL (3.4-5.0); CALCIUM 9.4 mg/dL (8.5-10.1); CREATININE 2.5 mg/dL (0.6-1.0); PHOSPHORUS 8.3 mg/dL (2.6-4.7); POTASSIUM 5.6 mmol/L (3.5-5.1)
--- NOTE | 2020-07-23 12:41 | NUR ---
ASSUMED CARE OF PT AT 0700 SPOKE TO PT'S SISTER GEORGES AT 1242 AND UPDATED PER POC. SHE WOULD LIKE TO KNOW WHY A CHEST X RAY HASN'T BEEN DONE SINCE THE , AND SHE WOULD LIKE TO SET UP FACETIME AND WILL CALL ME BACK TO LET ME KNOW WHAT TIME. I TOLD HER BEFORE 6 PM OR AFTER 8 PM
[2020-07-24] VITALS (45 sets, daily range): BP systolic 116–170; BP diastolic 48–70
[2020-07-24 05:09] LABS: HEMOGLOBIN 7.8 gm/dL (12.0-15.0); MCH 30.2 pg (26.0-34.0); MCHC 32.4 g/dL (28.0-37.0); MCV 93.1 fL (80.0-100.0); PLATELET COUNT 116 thou/uL (150-400); RBC 2.58 mil/uL (4.20-5.00); RDW 15.3 % (10.5-14.5); WBC 13.4 thou/uL (4.0-11.0)
[2020-07-24 05:55] LABS: ALBUMIN 2.8 g/dL (3.4-5.0); CALCIUM 9.2 mg/dL (8.5-10.1); DIRECT BILIRUBIN 0.6 mg/dL (<0.1-0.2); PHOSPHORUS 10.3 mg/dL (2.5-4.9)
[2020-07-24 06:10] LABS: CREATININE 3.8 mg/dL (0.6-1.0); POTASSIUM 6.7 mmol/L (3.5-5.1)
--- NOTE | 2020-07-24 06:20 | NUR ---
RN TO BEDSIDE AT APPROX 0440 BECAUSE PATIENT WAS BRADYCARDIC SUSTAINING IN THE 40S. PT ALSO HYPOTENSIVE. LEVOPHED DRIP INCRASED WITH NO IMPROVEMENT. .5MG IV ATROPINE GIVEN. HR AND BP IMROVED. DR MONTALVO NOTIFIED. DOPAMINE DRIP ORDERED. RN TO BEDSIDE AT APPROX 545. RN NOTICED SIGNIFICANT BLEEDING FROM PATIENTS CENTRAL LINE. BLOOD SOAKED THE SHEETS AND PATIENT GOWN. PRESSURE APPLIED TO SITE FOR APPROX 20 MINUTES. BLEEDING STOPPED. DRESSING CHANGED. DR MONTALVO NOTIFIED. CONTINUE TO MONITOR.
--- NOTE | 2020-07-24 08:30 | NUR ---
discussed during am rounds. Nephrology spoke with family via phone call this am. will cont following as needed for dc needs.
--- NOTE | 2020-07-24 08:42 | NUR ---
ASSUMED CARE OF PT AT 0700 DR. DELANEY AT BEDSIDE AT 0830, ORDERED NEW LABS AND MEDICATIONS. HE ALSO SPOKE TO THE PT'S SISTER GEORGES AND HER SON. THE SON INDICATED HE WANTS EVERYTHING DONE.
[2020-07-24 09:25] LABS: ABSOLUTE NEUTROPHILS 11.4 thou/uL (1.4-8.2); NUCLEATED RBCS 1 /100WBC; PLATELET ESTIMATE NORMAL
[2020-07-24 12:59] LABS: ALBUMIN 2.8 g/dL (3.4-5.0); CREATININE 4.1 mg/dL (0.6-1.0); PHOSPHORUS 9.7 mg/dL (2.5-4.9)
[2020-07-24 13:01] LABS: POTASSIUM 6.1 mmol/L (3.5-5.1)
[2020-07-25] VITALS (66 sets, daily range): BP systolic 91–132; BP diastolic 43–62
[2020-07-25 04:33] LABS: BE(vivo) -11.4 mmol/L (-2 to +3); HCO3 18.3 mmol/L (22.0-26.0); PCO2 64.2 mmHg (35.0-45.0); PO2 134.5 mmHg (80.0-100.0); sO2 97.4 % (92.0-98.0)
[2020-07-25 04:34] LABS: pH 7.072 (7.360-7.450)
--- NOTE | 2020-07-25 04:52 | NUR ---
FAMILY FACETIME WITH PT FOR 2.5 HOURS VIA IPAD. HR SLOWS TO 60'S WHEN DOPAMINE IS PAUSED, 80'S AND STABLE OTHERWISE. TIDAL VOLUMES 250-350. SLIGHT COUGH, NO GAG, NO PURPOSEFUL MOVEMENT OR RESPONSE. OG REPLACED AFTER SEVERAL HOURS OF ATTEMPTING TO UNCLOG, PLACED WITHOUT INCIDENT, DARK RED/BROWN RETURN. ABLE TO SLIGHTLY WEAN LEVO.
[2020-07-25 05:40] LABS: ALBUMIN 2.6 g/dL (3.4-5.0); CALCIUM 8.5 mg/dL (8.5-10.1); CREATININE 4.5 mg/dL (0.6-1.0); PHOSPHORUS 10.2 mg/dL (2.5-4.9)
[2020-07-25 05:46] LABS: POTASSIUM 5.8 mmol/L (3.5-5.1)
[2020-07-25 10:46] LABS: ALBUMIN 2.5 g/dL (3.4-5.0); DIRECT BILIRUBIN 0.4 mg/dL (<0.1-0.2); TOTAL BILIRUBIN 0.7 mg/dL (0.2-1.0); TOTAL PROTEIN 6.4 g/dL (6.4-8.2)
--- NOTE | 2020-07-25 14:28 | NUR ---
family phone call with hospitalist, jose. MD's provided education on code/cpr, comfort care, health issues ezra going through. she is critical family stated " trust in GOD, please keep everything going to keep her alive"/son mauricio. would like family to talk as family, about code status and think about how multiple organ are function of organs family and what would ezra want, care and comfort? at this point family wants everything done to keep her alive, power of prayer"/family, son mauricio. mauricio number [phone]. will cont following as needed for dc needs.
--- NOTE | 2020-07-25 16:28 | NUR ---
ASSUMED CARE AT 0700. PATIENT NOT PROGRESSING TOWARDS THE PLAN OF CARE EVIDENCED BY CONTINUED HIGH OXYGEN DEMANDS. PATIENT REQUIRING FIO2 OF 100%.
--- NOTE | 2020-07-25 21:19 | NUR ---
SPOKE WITH GEORGES ABOUT PT STATUS AND ANSWERED ALL QUESTIONS WITHIN SCOPE OF PRACTICE. CLARIFIED ABOUT HR, BP AND NO LEVO BUT STILL ON DOPAMINE, VERY LITTLE URINE OUTPUT, IMPROVED K TODAY BUT WORSENING KIDNEY FUNCTION, STILL ON MAX VENTILATOR SETTINGS.
[2020-07-26] VITALS (67 sets, daily range): BP systolic 0–171; BP diastolic 0–116
[2020-07-26 03:40] LABS: ALBUMIN 2.4 g/dL (3.4-5.0); CALCIUM 8.1 mg/dL (8.5-10.1); CREATININE 5.1 mg/dL (0.6-1.0); PHOSPHORUS 10.6 mg/dL (2.6-4.7); POTASSIUM 5.6 mmol/L (3.5-5.1)
--- NOTE | 2020-07-26 05:25 | NUR ---
STACKING BREATHS, TIDAL VOLUMES 350 THEN 70. SATS>95%. PT HAD 6 SEPARATE RUNS OF WHAT APPEARED TO BE AFIB, LONGEST LASTING 3 SECONDS. ATTEMPTED TO GET EKG BUT DID NOT LAST LONG ENOUGH. TITRATED DOPAMINE DOWN WITH HR UP TO 140. PT CONTINUES TO TOLERATE RATE OF 4 MCG/KG/HR OF DOPAMINE, BP SLIGHTLY LOWER THAN ON 5 MCG/KG/HR, BUT STILL WITHIN ACCEPTABLE PARAMETERS. HR STABLIZED IN THE 80'S WITH AN OCCASIONAL PAC NOTED, K+ 5.6. NO GAG, WEAK COUGH, NO PURPOSEFUL MOVEMENT.
[2020-07-26 14:58] LABS: BE(vivo) -6.8 mmol/L (-2 to +3); PO2 29.6 mmHg (80.0-100.0); pH 7.098 (7.360-7.450); sO2 36.6 % (92.0-98.0)
--- NOTE | 2020-07-26 18:35 | NUR ---
CODE BLUE CALLED @ 1444 DUE TO PULSELESSNESS. PEA ON MONITOR. SEE CODE SHEET FOR DETAILS. DR. CASTELLANOS, DR. MONTALVO, AND DR. DAO ARRIVED DURING CODE. DR. CASTELLANOS SPOKE AT LENGTH WITH THE FAMILY DURING THE CODE. CODE CALLED @ 1523, AND PT PRONOUNCED BY DR. CASTELLANOS. MULTIPLE FAMILY MEMBERS ARRIVING AT VARIED INTERVALS, AND UPDATED ON CURRENT EVENTS. EMOTIONAL SUPPORT PROVIDED BY [employer] LABORATORY DIRECTOR, NURSING STAFF AND PHYSICIANS.
== END 2020-07-26 15:23 | DRG 870 ==
LOC: ER 22:17 → EROBS 07-06 01:15 → 3W 07-06 01:15 → ICU 07-06 01:15 → 3W 07-06 20:27 → ICU 07-07 11:11
PROVIDERS: Emergency Medicine; Hospitalist; Internal Medicine; Internal Medicine Nephrology; Internal Medicine Pulmonary Disease; Nurse Practitioner Family; Pediatrics; Specialist; ADMIT Internal Medicine; ATTEND Internal Medicine
PROC: 5A0935A Assistance with Respiratory Ventilation, Less than 24 Consecutive Hours, High Flow/Velocity Cannula (ICD-10-PCS; 2020-07-06)
PROC: 5A09357 Assistance with Respiratory Ventilation, Less than 24 Consecutive Hours, Continuous Positive Airway Pressure (ICD-10-PCS; 2020-07-06)
PROC: XW033E5 Introduction of Remdesivir Anti-infective into Peripheral Vein, Percutaneous Approach, New Technology Group 5 (ICD-10-PCS; 2020-07-06)
PROC: 5A09357 Assistance with Respiratory Ventilation, Less than 24 Consecutive Hours, Continuous Positive Airway Pressure (ICD-10-PCS; 2020-07-07)
PROC: 5A1955Z Respiratory Ventilation, Greater than 96 Consecutive Hours (ICD-10-PCS; 2020-07-07)
PROC: 0BH17EZ Insertion of Endotracheal Airway into Trachea, Via Natural or Artificial Opening (ICD-10-PCS; 2020-07-07)
PROC: 02H633Z Insertion of Infusion Device into Right Atrium, Percutaneous Approach (ICD-10-PCS; 2020-07-07)
PROC: 30233N1 Transfusion of Nonautologous Red Blood Cells into Peripheral Vein, Percutaneous Approach (ICD-10-PCS; principal; 2020-07-20)
PROC: 0D9670Z Drainage of Stomach with Drainage Device, Via Natural or Artificial Opening (ICD-10-PCS; 2020-07-26)
PROC: 5A12012 Performance of Cardiac Output, Single, Manual (ICD-10-PCS; 2020-07-26)
DX: A41.89 Other specified sepsis (principal); N17.0 Acute kidney failure with tubular necrosis; U07.1 COVID-19; J12.82 Pneumonia due to coronavirus disease 2019; G92 Toxic encephalopathy; J80 Acute respiratory distress syndrome; E43 Unspecified severe protein-calorie malnutrition; R65.21 Severe sepsis with septic shock; J15.8 Pneumonia due to other specified bacteria; E66.2 Morbid (severe) obesity with alveolar hypoventilation; E87.0 Hyperosmolality and hypernatremia; I42.9 Cardiomyopathy, unspecified; M31.9 Necrotizing vasculopathy, unspecified; E87.2 Acidosis; T79.7XXA Traumatic subcutaneous emphysema, initial encounter; K56.7 Ileus, unspecified; E86.0 Dehydration; E78.5 Hyperlipidemia, unspecified; N18.9 Chronic kidney disease, unspecified; D64.9 Anemia, unspecified; F31.9 Bipolar disorder, unspecified; I12.9 Hypertensive chronic kidney disease with stage 1 through stage 4 chronic kidney disease, or unspecified chronic kidney disease; K76.89 Other specified diseases of liver; E87.8 Other disorders of electrolyte and fluid balance, not elsewhere classified; Z51.5 Encounter for palliative care; I46.9 Cardiac arrest, cause unspecified; E11.22 Type 2 diabetes mellitus with diabetic chronic kidney disease; E87.5 Hyperkalemia; I95.9 Hypotension, unspecified; D69.6 Thrombocytopenia, unspecified; X58.XXXA Exposure to other specified factors, initial encounter; Y93.89 Activity, other specified; Y92.89 Other specified places as the place of occurrence of the external cause; Y99.8 Other external cause status; Z82.49 Family history of ischemic heart disease and other diseases of the circulatory system; R53.81 Other malaise; Z68.34 Body mass index [BMI] 34.0-34.9, adult
CPT/HCPCS: 10078; 10879; 50455; 85076